=== PATIENT | male | born 2000 | race Two or more races ===

== ENCOUNTER 2019-02-07 08:32 | Emergency (ER) | payer BC ==
[~2019-02-07] VITALS: Ht 175.3 cm; Wt 83.9 kg
--- NOTE | 2019-02-07 08:56 | PHYS DOC ---
Adult General Chief Complaint Chief Complaint: BACK PAIN - NO INJURY HPI HPI Patient is a 18 year old male who presents with low back pain, CVA tenderness and suprapubic pain that has been going on for approximately 2 weeks. The patient states that he was seen at urgent care last week. He was started on an antibiotic for an upper respiratory infection but only took 3 days. He states he stopped the antibiotic because he began feeling better. He denies nausea or vomiting. He denies constipation or diarrhea. He states that he has been running a low-grade fever at home. Review of Systems Review of Systems Constitutional: Denies fever or chills [] Eyes: Denies change in visual acuity, redness, or eye pain [] HENT: Denies nasal congestion or sore throat [] Respiratory: Denies cough or shortness of breath [] Cardiovascular: No additional information not addressed in HPI [] GI: Denies abdominal pain, nausea, vomiting, bloody stools or diarrhea [] : See history of present illness Musculoskeletal: Denies back pain or joint pain [] Integument: Denies rash or skin lesions [] Neurologic: Denies headache, focal weakness or sensory changes [] Endocrine: Denies polyuria or polydipsia [] All other systems were reviewed and found to be within normal limits, except as documented in this note. Current Medications Current Medications Current Medications Medications (Trade) Dose Ordered Sig/George Start Time Stop Time Status Last Admin Dose Admin Azithromycin (Zithromax) 1,000 mg 1X ONCE 02/07/19 10:15 02/07/19 10:16 DC 02/07/19 10:26 1,000 MG Ceftriaxone Sodium (Rocephin Im) 1 gm 1X ONCE 02/07/19 10:15 02/07/19 10:16 DC 02/07/19 10:26 1 GM Ketorolac Tromethamine (Toradol Im) 60 mg 1X ONCE 02/07/19 10:15 02/07/19 10:16 DC 02/07/19 10:27 60 MG Allergies Allergies Allergies Coded Allergies Type Severity Reaction Last Updated Verified No Known Drug Allergies 02/07/19 No Physical Exam Physical Exam Constitutional: Well developed, well nourished, no acute distress, non-toxic appearance. [] HENT: Normocephalic, atraumatic, bilateral tympanic membranes normal, oropharynx moist, no oral exudates, nose normal. [] Eyes: PERRLA, EOMI, conjunctiva normal, no discharge. [] Neck: Normal range of motion, no tenderness, supple, no stridor. [] Cardiovascular:Heart rate regular rhythm, no murmur [] Lungs & Thorax: Bilateral breath sounds clear to auscultation [] Abdomen: Bowel sounds normal, soft, suprapubic tenderness, no masses, no pulsatile masses. [] Skin: Warm, dry, no erythema, no rash. [] Back: generalized lumbar tenderness, CVA tenderness to left. [] Extremities: No tenderness, no cyanosis, no clubbing, ROM intact, no edema. [] Neurologic: Alert and oriented X 3, normal motor function, normal sensory function, no focal deficits noted. [] Psychologic: Affect normal, judgement normal, mood normal. [] Current Patient Data Vital Signs Vital Signs Date Time Temp Pulse Resp B/P (MAP) Pulse Ox O2 Delivery O2 Flow Rate FiO2 02/07/19 10:56 16 16 119/67 (84) 100 Room Air 02/07/19 08:36 97.9 97.9 Lab Values Laboratory Tests Test 02/07/19 08:45 Urine Collection Type Unknown Urine Color Alisha Urine Clarity Clear Urine pH 7.5 Urine Specific [place] 1.025 Urine Protein 30 mg/dL (NEG-TRACE) Urine Glucose (UA) Negative mg/dL (NEG) Urine Ketones (Stick) Trace mg/dL (NEG) Urine Blood Negative (NEG) Urine Nitrite Negative (NEG) Urine Bilirubin Small (NEG) Urine Urobilinogen Dipstick 2.0 mg/dL (0.2 mg/dL) Urine Leukocyte Esterase Negative (NEG) Urine RBC 0 /HPF (0-2) Urine WBC 5-10 /HPF (0-4) Urine Squamous Epithelial Cells Few /LPF Urine Bacteria 0 /HPF (0-FEW) Urine Mucus Marked /LPF EKG EKG [] Radiology/Procedures Radiology/Procedures [] Course & Med Decision Making Course & Med Decision Making Pertinent Labs and Imaging studies reviewed. (See chart for details) []The patient was given Rocephin, Zithromax and Toradol in the emergency department. He understands that we will only call if positive culture results. He is to follow-up with his primary care provider for return to work. He is in agreement with this plan. Renee Disclaimer Dragon Disclaimer This electronic medical record was generated, in whole or in part, using a voice recognition dictation system. Departure Departure Impression: Primary Impression: Dysuria Additional Impression: Low back pain Disposition: 01 HOME, SELF-CARE Condition: STABLE Patient Instructions: Back Pain, Adult, Urinary Tract Infection, [id number] Additional Instructions: Take the antibiotics as directed. Follow up with your PCP in 1 week for a urine recheck. If worsening return to the ED. We will call you if your cultures come back positive. Scripts Ciprofloxacin Hcl (CIPRO) 500 Mg Tablet 1 TAB PO BID for uti, #20 TAB Prov: JENNIFER CAMP APRN 02/07/19 Problem Qualifiers JENNIFER CAMP APRN February 07, 2019 08:56
[2019-02-07 09:27] LABS: BILIRUBIN,URINE SMALL (NEG); CLARITY,URINE CLEAR; COLOR,URINE AMBER; NITRITE,URINE NEGATIVE (NEG); PH,URINE 7.5; PROTEIN,URINE 30 mg/dL (NEG-TRACE)
[2019-02-07 09:45] LABS: BACTERIA,URINE 0 /HPF (0-FEW); RBC,URINE 0 /HPF (0-2); SQUAMOUS EPITHELIAL CELL,UR FEW /LPF
[2019-02-07] MEDS ORDERED: AZITHROMYCIN 250 MG TABLET. PO ONE (10:15)
[2019-02-07] MEDS ORDERED: KETOROLAC 60 MG/2 ML VIAL. IM ONE (10:15)
[2019-02-07] MEDS ORDERED: cefTRIAXone IM 1 GM VIAL IM ONE (10:15)
[2019-02-07] MEDS ORDERED: CIPR500T94 PO (10:44)
[2019-02-07 10:56] VITALS: BP 119/67
[2019-02-24] MEDS ORDERED: OXYC-411 PO (11:54)
== END 2019-02-07 10:56 | disposition home or self-care (01) ==
LOC: ER 08:32
DX: M54.5 Low back pain (principal); R10.30 Lower abdominal pain, unspecified; R30.0 Dysuria; J06.9 Acute upper respiratory infection, unspecified
CPT/HCPCS: 81001; 87086; 87491; 87591; 96372; 99284; J0696; J1885; Q0144

== ENCOUNTER 2019-02-19 07:16 | Emergency (ER) | payer BC ==
[~2019-02-19] VITALS: Ht 177.8 cm; Wt 79.4 kg
[~2019-02-19 07:16] MED LIST: CIPR500T94 PO
[2019-02-19] MEDS ORDERED: HYDROcodone/APAP 5/325MG 1 TAB TABLET PO ONE (07:45)
--- NOTE | 2019-02-19 08:41 | PHYS DOC ---
Past Medical History Past Medical History: No Pertinent History Past Surgical History: No Surgical History Smoking: Cigarettes, Less than 1pk/day Alcohol Use: None Drug Use: Marijuana Adult General Chief Complaint Chief Complaint: LOWER BACK PAIN OR INJURY HPI HPI Patient is a 18 year old male who presents with complaining of low back pain. Patient complaining of left flank and lower back pain for 1.5 month as intermittent sharp pain without radiation that gradually getting worse. Patient states he was seen by his primary care physician in this hospital and treated for UTI and pain medication improvement of his condition but his back pain returned again few days after finishing the medication. Patient denies fever or chills, focal neuro deficit, urine and bowel incontinence, nausea and vomiting, injury. Patient states he forced muscle for the last 6 months and lifting weights. Review of Systems Review of Systems Constitutional: Denies fever or chills [] Eyes: Denies change in visual acuity, redness, or eye pain [] HENT: Denies nasal congestion or sore throat [] Respiratory: Denies cough or shortness of breath [] Cardiovascular: No additional information not addressed in HPI [] GI: Denies abdominal pain, nausea, vomiting, bloody stools or diarrhea [] : Denies dysuria or hematuria [] Musculoskeletal: Reports back pain, denies joint pain [] Integument: Denies rash or skin lesions [] Neurologic: Denies headache, focal weakness or sensory changes [] Endocrine: Denies polyuria or polydipsia [] All other systems were reviewed and found to be within normal limits, except as documented in this note. Current Medications Current Medications Current Medications Medications (Trade) Dose Ordered Sig/[facility] Start Time Stop Time Status Last Admin Dose Admin Acetaminophen/ Hydrocodone Bitart (Lortab 5/325) 1 tab 1X ONCE 02/19/19 07:45 02/19/19 07:49 DC 02/19/19 07:56 1 TAB Allergies Allergies Allergies Coded Allergies Type Severity Reaction Last Updated Verified No Known Drug Allergies 02/07/19 No Physical Exam Physical Exam Constitutional: Well developed, well nourished, mild distress, non-toxic appearance. [] HENT: Normocephalic, atraumatic, oropharynx moist. Eyes: PERRLA, EOMI, conjunctiva normal, no discharge. [] Neck: Normal range of motion, no tenderness, supple, no stridor. [] Cardiovascular:Heart rate regular rhythm, no murmur [] Lungs & Thorax: Bilateral breath sounds clear to auscultation [] Skin: Warm, dry, no erythema, no rash. [] Back: No midline tenderness, left paraspinal muscular spasm with painful range of motion, no CVA tenderness. [] Extremities: No tenderness, no cyanosis, no clubbing, ROM intact, no edema. [] Neurologic: Alert and oriented X 3, normal motor function, normal sensory func tion, no focal deficits noted. [] Psychologic: Affect normal, judgement normal, mood normal. [] Current Patient Data Vital Signs Vital Signs Date Time Temp Pulse Resp B/P (MAP) Pulse Ox O2 Delivery O2 Flow Rate FiO2 02/19/19 10:30 84 16 127/77 (94) 98 02/19/19 07:29 98.2 Room Air 98.2 Lab Values Laboratory Tests Test 02/19/19 07:22 02/19/19 09:25 02/19/19 09:35 Urine Collection Type Unknown Urine Color Yellow Urine Clarity Clear Urine pH 8.0 Urine Specific [place] 1.020 Urine Protein Negative mg/dL (NEG-TRACE) Urine Glucose (UA) Negative mg/dL (NEG) Urine Ketones (Stick) Negative mg/dL (NEG) Urine Blood Negative (NEG) Urine Nitrite Negative (NEG) Urine Bilirubin Negative (NEG) Urine Urobilinogen Dipstick 0.2 mg/dL (0.2 mg/dL) Urine Leukocyte Esterase Negative (NEG) Urine RBC 0 /HPF (0-2) Urine WBC 0 /HPF (0-4) Urine Squamous Epithelial Cells Few /LPF Urine Amorphous Sediment Present /HPF Urine Bacteria 0 /HPF (0-FEW) Urine Mucus Slight /LPF White Blood Count 14.7 x10^3/uL (4.0-11.0) H Red Blood Count 4.65 x10^6/uL (4.30-5.70) Hemoglobin 13.1 g/dL (13.0-17.5) Hematocrit 39.7 % (39.0-53.0) Mean Corpuscular Volume 85 fL (79-100) Mean Corpuscular Hemoglobin 28 pg (25-35) Mean Corpuscular Hemoglobin Concent 33 g/dL (31-37) Red Cell Distribution Width 13.1 % (11.5-14.5) Platelet Count 503 x10^3/uL (140-400) H Neutrophils (%) (Auto) 82 % (31-73) H Lymphocytes (%) (Auto) 10 % (24-48) L Monocytes (%) (Auto) 8 % (0-9) Eosinophils (%) (Auto) 0 % (0-3) Basophils (%) (Auto) 0 % (0-3) Neutrophils # (Auto) 12.0 x10^3uL (1.8-7.7) H Lymphocytes # (Auto) 1.4 x10^3/uL (1.0-4.8) Monocytes # (Auto) 1.2 x10^3/uL (0.0-1.1) H Eosinophils # (Auto) 0.0 x10^3/uL (0.0-0.7) Basophils # (Auto) 0.0 x10^3/uL (0.0-0.2) Sodium Level 135 mmol/L (136-145) L Potassium Level 3.7 mmol/L (3.5-5.1) Chloride Level 98 mmol/L (98-107) Carbon Dioxide Level 27 mmol/L (21-32) Anion Gap 10 (6-14) Blood Urea Nitrogen 7 mg/dL (8-26) L Creatinine 0.8 mg/dL (0.7-1.3) Estimated GFR (Cockcroft-Gault) 124.5 BUN/Creatinine Ratio 9 (6-20) Glucose Level 106 mg/dL (70-99) H Calcium Level 9.5 mg/dL (8.5-10.1) Total Bilirubin 0.4 mg/dL (0.2-1.0) Aspartate Amino Transferase (AST) 29 U/L (15-37) Alanine Aminotransferase (ALT) 39 U/L (16-63) Alkaline Phosphatase 105 U/L (46-116) Total Protein 8.8 g/dL (6.4-8.2) H Albumin 3.0 g/dL (3.4-5.0) L Albumin/Globulin Ratio 0.5 (1.0-1.7) L Lipase 62 U/L (73-393) L Prothrombin Time 14.0 SEC (11.7-14.0) Prothrombin Time INR 1.1 (0.8-1.1) PTT 33 SEC (24-38) Laboratory Tests 02/19/19 09:25 Laboratory Tests 02/19/19 09:25 EKG EKG [] Radiology/Procedures Radiology/Procedures [facility] [address] [place] [address] IMAGING REPORT Signed PATIENT: ELEAZAR GATES ACCOUNT: [id number] : 2000 LOCATION: ER AGE: 18 SEX: M EXAM STATUS: REG ER ORD. PHYSICIAN: RUIZ NEAL MD REASON: flank pain PROCEDURE: CT ABDOMEN PELVIS WO CONTRAST Examination: CT of the abdomen pelvis and CT lumbar spine without contrast HISTORY: History of flank pain COMPARISON: None available TECHNIQUE: Axial CT images of the abdomen pelvis and lumbar spine were performed contrast and coronal sagittal reformats are performed. Exposure: One or more of the following individualized dose reduction techniques were utilized for this examination: 1. Automated exposure control 2. Adjustment of the mA and/or kV according to patient size 3. Use of iterative reconstruction technique FINDINGS: The bibasilar lungs are clear. No evidence of free air identified in the abdomen. The evaluation of the solid organs is limited due to lack of IV contrast. The evaluation of bowel is limited due to lack of oral contrast. The visualized noncontrasted liver, spleen, adrenals grossly appears unremarkable The gallbladder is mildly distended. The stomach is mildly distended. The small bowel is nondilated. Feces and gas noted in the colon. Urinary bladder is mildly distended. No evidence of intrarenal collecting system calculi or hydronephrosis is evident. There are multiple enlarged retrocrural lymph nodes and retroperitoneal lymph nodes with surrounding inflammatory fat stranding noted around the retroperitoneal lymph nodes. The lymph nodes in the retroperitoneal region appear matted with the largest lymph node measuring 3.8 cm. No evidence of lytic bony destructive lesion. The lumbar vertebral body heights are maintained. No evidence of listhesis. IMPRESSION: 1. Multiple enlarged retroperitoneal lymph nodes which appear matted together with surrounding inflammatory fat stranding. Differential includes lymphoma or other lymphoproliferative disorder/lymphadenitis. Few prominent retrocrural lymph nodes identified. Electronically signed by: Michel Falcon MD (02/19/2019 9:04 AM) [facility] DICTATED and SIGNED BY: MICHEL FALCON MD DATE: 02/19/19 0904 Course & Med Decision Making Course & Med Decision Making Pertinent Labs and Imaging studies reviewed. (See chart for details) Evaluation of patient in ER showed 18-year-old male patient with complaining of left flank pain for 1.5 months as a constant pain. Patient had unremarkable physical exam and felt better after treatment with Vicodin and Flexeril. Patient had CT of abdomen and pelvis that showed multiple retroperitoneal lymphadenopathy as large as 3.8 cm concern for possible lymphoma. Dr. Zamora on- call primary care physician called at [phone] for possible hospitalization but he recommended to discharge patient home and follow up with his primary care physician office on Thursday. Patient felt comfortable to go home and follow up with his doctor appointment that was already made in 4 days. Dragon Disclaimer Dragon Disclaimer This electronic medical record was generated, in whole or in part, using a voice recognition dictation system. Departure Departure Impression: Primary Impression: Retroperitoneal lymphadenopathy Additional Impression: Left flank pain Disposition: HOME, SELF-CARE (at 1034) Admitting Physician: Rita Lemus Condition: IMPROVED Referrals: RITA LEMUS MD (PCP) Patient Instructions: Flank Pain Additional Instructions: Drink plenty of liquids Follow-up with your primary care physician in 2-3 days Return to ER if not getting better Scripts Hydrocodone/Apap 5-325 (NORCO 5-325 TABLET) 1 Each Tablet 1 TAB PO PRN Q6HRS PRN for PAIN, #10 TAB 0 Refills Prov: RUIZ NEAL MD 02/19/19 Problem Qualifiers RUIZ NEAL MD February 19, 2019 08:41
[2019-02-19 09:32] LABS: BILIRUBIN,URINE NEGATIVE (NEG); CLARITY,URINE CLEAR; COLOR,URINE YELLOW; NITRITE,URINE NEGATIVE (NEG); PROTEIN,URINE NEGATIVE (NEG-TRACE); UROBILINOGEN,URINE 0.2 mg/dL (0.2 mg/dL)
[2019-02-19 09:38] LABS: BASO % 0 % (0-3); EOS % 0 % (0-3); HEMATOCRIT 39.7 % (39.0-53.0); HEMOGLOBIN 13.1 g/dL (13.0-17.5); LYMPH # 1.4 x10^3/uL (1.0-4.8); LYMPH % 10 % (24-48); MEAN CORPUSCULAR HEMOGLOBIN 28 pg (25-35); MEAN CORPUSCULAR HGB CONC 33 g/dL (31-37); MEAN CORPUSCULAR VOLUME 85 fL (79-100); MONO # 1.2 x10^3/uL (0.0-1.1); MONO % 8 % (0-9); NEUT % 82 % (31-73); PLATELET COUNT 503 x10^3/uL (140-400); RED BLOOD COUNT 4.65 x10^6/uL (4.30-5.70); RED CELL DISTRIBUTION WIDTH 13.1 % (11.5-14.5); WHITE BLOOD COUNT 14.7 x10^3/uL (4.0-11.0)
[2019-02-19 09:43] LABS: AMORPHOUS SEDIMENT,UR PRESENT /HPF; BACTERIA,URINE 0 /HPF (0-FEW); RBC,URINE 0 /HPF (0-2); SQUAMOUS EPITHELIAL CELL,UR FEW /LPF; WBC,URINE 0 /HPF (0-4)
[2019-02-19 09:48] LABS: CALCIUM 9.5 mg/dL (8.5-10.1); CREATININE 0.8 mg/dL (0.7-1.3); GFR 124.5; POTASSIUM 3.7 mmol/L (3.5-5.1)
[2019-02-19 09:58] LABS: ALBUMIN/GLOBULIN RATIO 0.5 (1.0-1.7); TOTAL BILIRUBIN 0.4 mg/dL (0.2-1.0); TOTAL PROTEIN 8.8 g/dL (6.4-8.2)
[2019-02-19 10:30] VITALS: BP 127/77
[2019-02-19] MEDS ORDERED: HYDR-3164 PO (10:36)
--- NOTE | 2019-02-21 14:40 | RAD ---
Examination: CT of the abdomen pelvis and CT lumbar spine without contrast HISTORY: History of flank pain COMPARISON: None available TECHNIQUE: Axial CT images of the abdomen pelvis and lumbar spine were performed contrast and coronal sagittal reformats are performed. Exposure: One or more of the following individualized dose reduction techniques were utilized for this examination: 1. Automated exposure control 2. Adjustment of the mA and/or kV according to patient size 3. Use of iterative reconstruction technique FINDINGS: The bibasilar lungs are clear. No evidence of free air identified in the abdomen. The evaluation of the solid organs is limited due to lack of IV contrast. The evaluation of bowel is limited due to lack of oral contrast. The visualized noncontrasted liver, spleen, adrenals grossly appears unremarkable The gallbladder is mildly distended. The stomach is mildly distended. The small bowel is nondilated. Feces and gas noted in the colon. Urinary bladder is mildly distended. No evidence of intrarenal collecting system calculi or hydronephrosis is evident. There are multiple enlarged retrocrural lymph nodes and retroperitoneal lymph nodes with surrounding inflammatory fat stranding noted around the retroperitoneal lymph nodes. The lymph nodes in the retroperitoneal region appear matted with the largest lymph node measuring 3.8 cm. No evidence of lytic bony destructive lesion. The lumbar vertebral body heights are maintained. No evidence of listhesis. IMPRESSION: 1. Multiple enlarged retroperitoneal lymph nodes which appear matted together with surrounding inflammatory fat stranding. Differential includes lymphoma or other lymphoproliferative disorder/lymphadenitis. Few prominent retrocrural lymph nodes identified. Electronically signed by: Michel Falcon MD (02/19/2019 9:04 AM) [facility]
[2019-02-24] MEDS ORDERED: OXYC-411 PO (11:54)
== END 2019-02-19 10:45 | disposition home or self-care (01) ==
LOC: ER 07:16
DX: M54.5 Low back pain (principal); R59.0 Localized enlarged lymph nodes; R10.9 Unspecified abdominal pain; F17.210 Nicotine dependence, cigarettes, uncomplicated
CPT/HCPCS: 36415; 72131; 74176; 80053; 81001; 83690; 85025; 85610; 85730; 99285-25

== ENCOUNTER → 2019-03-04 | Outpatient (CLI) | payer BC ==
[2019-02-24 15:10] VITALS: BP 158/77
[~2019-03-04] MED LIST changes: +CEPH-264 PO; +HYDR-3164 PO; +OXYC-411 PO
--- NOTE | 2019-03-04 15:15 | RAD ---
Testicular ultrasound HISTORY: Lymphadenopathy. Testicular mass. TECHNIQUE: Grayscale, color Doppler and spectral waveform analysis. FINDINGS: Right testicle measures 3.6 x 2.4 x 1.5 cm. Numerous tiny reflectors are identified compatible with microlithiasis. There is a heterogeneous solid-appearing mass within the right testicle measuring 10 x 7 x 10 mm. There is vascularity around the margins of the lesion. The lesion is heterogeneous but overall hypoechoic to adjacent testicular tissue. There is intact blood supply to the right testicle. Right epididymis appears unremarkable. Left testicle measures 3.7 x 2.5 x 1.7 cm. There are numerous tiny reflectors within the left testicle compatible with microlithiasis. Intact blood supply to the left testicle. Left epididymis appears unremarkable. There is a small varicocele lateral to the left testicle. Small bilateral hydroceles are seen. IMPRESSION: Right testicle mass concerning for malignant etiology. 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 Other neoplastic etiology such as seminoma or nonseminomatous germ cell tumor could also be considered. Electronically signed by: Layo Torres MD (03/04/2019 3:12 PM) [id number]
== END | disposition home or self-care (01) ==
LOC: US 13:59
PROVIDERS: ATTEND Internal Medicine Hematology & Oncology
DX: I86.1 Scrotal varices (principal); N43.3 Hydrocele, unspecified
CPT/HCPCS: 76870

== ENCOUNTER 2019-03-06 03:05 | Emergency (ER) | payer BC ==
[~2019-03-06] VITALS: Ht 177.8 cm; Wt 77.6 kg
[~2019-03-06 03:05] MED LIST changes: -CEPH-264 PO
[2019-03-06] MEDS ORDERED: IV NORMAL SALINE 1000ML BAG 1,000 ML IV ONE (05:00)
[2019-03-06] MEDS ORDERED: fentaNYL PF VIAL 100 MCG/2 ML VIAL IV ONE (05:00)
[2019-03-06] MEDS ORDERED: ONDANSETRON PF 4 MG/2 ML VIAL. IV ONE (05:00)
[2019-03-06] MEDS ORDERED: KETOROLAC 30 MG/ML VIAL. IV ONE (05:00)
[2019-03-06 06:15] LABS: BASO % 0 % (0-3); EOS % 0 % (0-3); HEMATOCRIT 39.8 % (39.0-53.0); HEMOGLOBIN 13.3 g/dL (13.0-17.5); LYMPH % 6 % (24-48); MEAN CORPUSCULAR HEMOGLOBIN 28 pg (25-35); MEAN CORPUSCULAR HGB CONC 33 g/dL (31-37); MEAN CORPUSCULAR VOLUME 83 fL (79-100); MONO # 1.5 x10^3/uL (0.0-1.1); MONO % 9 % (0-9); NEUT # 14.3 x10^3uL (1.8-7.7); NEUT % 85 % (31-73); PLATELET COUNT 451 x10^3/uL (140-400); RED BLOOD COUNT 4.81 x10^6/uL (4.30-5.70); RED CELL DISTRIBUTION WIDTH 14.3 % (11.5-14.5); WHITE BLOOD COUNT 16.9 x10^3/uL (4.0-11.0)
[2019-03-06] MEDS ORDERED: HYDROmorphone 2 MG/ML VIAL IV ONE (06:15)
--- NOTE | 2019-03-06 06:18 | PHYS DOC ---
Past Medical History Past Medical History: Cancer (Testicular) (IQRA QUINTANILLA DO) Past Surgical History: No Surgical History (IQRA QUINTANILLA DO) Additional Information: Nonsmoker Alcohol Use: None Drug Use: Marijuana (IQRA QUINTANILLA DO) Adult General Chief Complaint Chief Complaint: BACK PAIN - NO INJURY HPI HPI 18-year-old male with past medical history of 1.5 month history of back pain who was recently diagnosed with testicular cancer and lymphadenopathy based on CT imaging from 02/19/2019 presents with worsening of active pain. Patient denies recent trauma. Reports has been taking Percocet with some improvement which is fleeting. Patient reports has been feeling unwell and nauseated. Patient also reports has had subjective fever over the last 1-2 days. Denies rash. Denies dysuria or hematuria. (IQRA QUINTANILLA DO) Review of Systems Review of Systems Constitutional: Reports subjective fever or chills and generalized malaise Eyes: Denies redness or eye pain HENT: Denies nasal congestion or sore throat Respiratory: Denies cough or shortness of breath Cardiovascular: Denies chest pain or palpitations GI: Denies abdominal pain; reports nausea : Denies dysuria or hematuria Musculoskeletal: Reports back pain Integument: Denies rash or skin lesions Neurologic: Denies headache, focal weakness or sensory changes Complete systems were reviewed and found to be within normal limits, except as documented in this note. (IQRA QUINTANILLA DO) Current Medications Current Medications Current Medications Medications (Trade) Dose Ordered Sig/George Start Time Stop Time Status Last Admin Dose Admin Ceftriaxone Sodium (Rocephin) 1 gm 1X ONCE 03/06/19 08:00 03/06/19 08:04 DC 03/06/19 08:22 1 GM Fentanyl Citrate (Fentanyl 2ml Vial) 50 mcg 1X ONCE 03/06/19 05:00 03/06/19 05:01 DC 03/06/19 05:54 50 MCG Hydromorphone HCl (Dilaudid) 1 mg 1X ONCE 03/06/19 06:15 03/06/19 06:16 DC 03/06/19 07:12 1 MG Ketorolac Tromethamine (Toradol 30mg Vial) 30 mg 1X ONCE 03/06/19 05:00 03/06/19 05:01 DC 03/06/19 05:52 30 MG Magnesium Oxide (Magnesium Oxide) 400 mg DAILY 03/06/19 08:01 03/06/19 09:00 DC 03/06/19 08:21 400 MG Ondansetron HCl (Zofran) 4 mg 1X ONCE 03/06/19 05:00 03/06/19 05:01 DC 03/06/19 05:49 4 MG Sodium Chloride 1,000 ml @ 1,000 mls/hr 1X ONCE 03/06/19 05:00 03/06/19 05:59 DC 03/06/19 05:00 1,000 MLS/HR (RUIZ NEAL MD) Allergies Allergies Allergies Coded Allergies Type Severity Reaction Last Updated Verified No Known Drug Allergies 02/07/19 No (RUIZ NEAL MD) Physical Exam Physical Exam Constitutional: Well developed, well nourished, no acute distress, appears unwell but nontoxic HENT: Normocephalic, atraumatic, oropharynx moist Eyes: Conjunctiva normal, no discharge Neck: Normal range of motion, no tenderness, supple Cardiovascular: Heart rate normal, regular rhythm Lungs & Thorax: Bilateral breath sounds clear to auscultation, no wheezing Abdomen: Soft, no tenderness Skin: Warm, dry, no erythema, no rash Back: No midline tenderness, no CVA tenderness, mild paraspinal tenderness to lumbar region Extremities: No tenderness, ROM intact, no edema Neurologic: Alert and oriented X 3, normal motor function, normal sensory function, no focal deficits noted Psychologic: Affect flat, judgement normal (QUINTANILLA,IQRA R DO) Current Patient Data Vital Signs Vital Signs Date Time Temp Pulse Resp B/P (MAP) Pulse Ox O2 Delivery O2 Flow Rate FiO2 03/06/19 08:30 116 119/67 (84) 98 Room Air 03/06/19 08:00 14 03/06/19 03:32 99.0 99.0 (RUIZ NEAL MD) Lab Values Laboratory Tests Test 03/06/19 05:40 03/06/19 05:50 White Blood Count 16.9 x10^3/uL (4.0-11.0) H Red Blood Count 4.81 x10^6/uL (4.30-5.70) Hemoglobin 13.3 g/dL (13.0-17.5) Hematocrit 39.8 % (39.0-53.0) Mean Corpuscular Volume 83 fL (79-100) Mean Corpuscular Hemoglobin 28 pg (25-35) Mean Corpuscular Hemoglobin Concent 33 g/dL (31-37) Red Cell Distribution Width 14.3 % (11.5-14.5) Platelet Count 451 x10^3/uL (140-400) H Neutrophils (%) (Auto) 85 % (31-73) H Lymphocytes (%) (Auto) 6 % (24-48) L Monocytes (%) (Auto) 9 % (0-9) Eosinophils (%) (Auto) 0 % (0-3) Basophils (%) (Auto) 0 % (0-3) Neutrophils # (Auto) 14.3 x10^3uL (1.8-7.7) H Lymphocytes # (Auto) 1.0 x10^3/uL (1.0-4.8) Monocytes # (Auto) 1.5 x10^3/uL (0.0-1.1) H Eosinophils # (Auto) 0.0 x10^3/uL (0.0-0.7) Basophils # (Auto) 0.0 x10^3/uL (0.0-0.2) Platelet Estimate Pending Sodium Level 138 mmol/L (136-145) Potassium Level 3.7 mmol/L (3.5-5.1) Chloride Level 101 mmol/L (98-107) Carbon Dioxide Level 24 mmol/L (21-32) Anion Gap 13 (6-14) Blood Urea Nitrogen 7 mg/dL (8-26) L Creatinine 0.7 mg/dL (0.7-1.3) Estimated GFR (Cockcroft-Gault) 145.3 BUN/Creatinine Ratio 10 (6-20) Glucose Level 120 mg/dL (70-99) H Lactic Acid Level 0.9 mmol/L (0.4-2.0) Calcium Level 9.5 mg/dL (8.5-10.1) Magnesium Level 1.6 mg/dL (1.8-2.4) L Total Bilirubin 0.4 mg/dL (0.2-1.0) Aspartate Amino Transferase (AST) 37 U/L (15-37) Alanine Aminotransferase (ALT) 43 U/L (16-63) Alkaline Phosphatase 98 U/L (46-116) Total Protein 8.8 g/dL (6.4-8.2) H Albumin 3.2 g/dL (3.4-5.0) L Albumin/Globulin Ratio 0.6 (1.0-1.7) L Urine Collection Type Unknown Urine Color Yellow Urine Clarity Clear Urine pH 5.5 Urine Specific [place] 1.025 Urine Protein Negative mg/dL (NEG-TRACE) Urine Glucose (UA) Negative mg/dL (NEG) Urine Ketones (Stick) Negative mg/dL (NEG) Urine Blood Negative (NEG) Urine Nitrite Negative (NEG) Urine Bilirubin Negative (NEG) Urine Urobilinogen Dipstick 0.2 mg/dL (0.2 mg/dL) Urine Leukocyte Esterase Negative (NEG) Urine RBC 0 /HPF (0-2) Urine WBC 0 /HPF (0-4) Urine Squamous Epithelial Cells Few /LPF Urine Bacteria 0 /HPF (0-FEW) Urine Mucus Slight /LPF Laboratory Tests 03/06/19 05:40 Laboratory Tests 03/06/19 05:40 (RUIZ NEAL MD) EKG EKG [] (IQRA QUINTANILLA DO) Radiology/Procedures Radiology/Procedures [] (IQRA QUINTANILLA DO) Radiology/Procedures [facility] [address] [place] [address] IMAGING REPORT Signed PATIENT: ELEAZAR GATES ACCOUNT: [id number] : 2000 LOCATION: ER AGE: 18 SEX: M EXAM STATUS: REG ER ORD. PHYSICIAN: RUIZ NEAL MD REASON: fever, testicular cancer PROCEDURE: CHEST PA & LATERAL Examination: CHEST PA LATERAL Technique: PA and lateral views of the chest were obtained. Clinical History: fever, testicular cancer Comparison: None. Findings: The heart and pulmonary vasculature appear within normal limits. The lungs are clear. The pleural margins are clear. Impression: No acute chest process is seen. DICTATED and SIGNED BY: NINA TAY MD DATE: 03/06/19 0751 (RUIZ NEAL MD) Course & Med Decision Making Course & Med Decision Making Patient with diagnosis of testicular cancer with known lymphadenopathy noted on CT abdomen/pelvis presents with worsening back pain which is uncontrolled with his pain medication. Patient also reporting subjective fever/chills, generalized malaise, and nausea. Labs obtained and pending. CT imaging held at this time given recent studies. Symptomatic treatment provided. Sign out given to Dr. Neal for further evaluation and final disposition. Discussed current findings and plan with patient and family, who acknowledge understanding and agreement. (IQRA QUINTANILLA DO) Course & Med Decision Making Evaluation of patient in ER showed 18-year-old male patient with newly diagnosis of testicular cancer without starting chemotherapy or radiation therapy presented to ER with complaining of fever up to 101 and increasing back pain and generalized weakness. Patient had temperature of 98.9 at my evaluation without tachycardia. Labs showing leukocytosis without elevation of lactic acid. Patient's oncologist Dr. Hernandez was consulted at 0 [phone] and he recommended to discharge patient with antibiotic. Patient treated with Rocephin ER and prescription for Keflex was given and was advised to follow-up with Dr. Hernandez tomorrow. Patient had magnesium of 1.6 and treated with oral magnesium. (RUIZ NEAL MD) Dragon Disclaimer Dragon Disclaimer This electronic medical record was generated, in whole or in part, using a voice recognition dictation system. (IQRA QUINTANILLA DO) Departure Departure Impression: Primary Impression: Back pain Additional Impressions: Testicular cancer Fever Hypomagnesemia Disposition: 01 HOME, SELF-CARE (at 0830) Condition: IMPROVED Referrals: CITLALY LEMUS MD (PCP) ELI HERNANDEZ MD Patient Instructions: Fever, Adult, Hypomagnesemia Additional Instructions: Drink plenty of liquids Follow-up with your primary care physician in 3-5 days Return to ER if not getting better Follow-up with your oncologist Dr. Hernandez tomorrow Scripts Cephalexin (KEFLEX) 500 Mg Capsule 2 CAP PO Q12HR, #40 CAP Prov: RUIZ NEAL MD 03/06/19 Problem Qualifiers Primary Impression: Back pain Back pain location: low back pain Chronicity: acute Back pain laterality: bilateral Sciatica presence: without sciatica Qualified Codes: M54.5 - Low back pain Additional Impressions: Testicular cancer Descendance of testis: unspecified Laterality: unspecified laterality Qualified Codes: C62.90 - Malignant neoplasm of unspecified testis, unspecified whether descended or undescended Fever Fever type: unspecified Qualified Codes: R50.9 - Fever, unspecified IQRA QUINTANILLA DO Mar 06, 2019 06:18 RUIZ NEAL MD Mar 06, 2019 08:33
[2019-03-06 06:22] LABS: CALCIUM 9.5 mg/dL (8.5-10.1); CREATININE 0.7 mg/dL (0.7-1.3); GFR 145.3; POTASSIUM 3.7 mmol/L (3.5-5.1)
[2019-03-06 06:28] LABS: ALBUMIN 3.2 g/dL (3.4-5.0); ALBUMIN/GLOBULIN RATIO 0.6 (1.0-1.7); MAGNESIUM 1.6 mg/dL (1.8-2.4); TOTAL BILIRUBIN 0.4 mg/dL (0.2-1.0); TOTAL PROTEIN 8.8 g/dL (6.4-8.2)
[2019-03-06 06:58] LABS: BILIRUBIN,URINE NEGATIVE (NEG); CLARITY,URINE CLEAR; COLOR,URINE YELLOW; NITRITE,URINE NEGATIVE (NEG); PH,URINE 5.5; PROTEIN,URINE NEGATIVE (NEG-TRACE); UROBILINOGEN,URINE 0.2 mg/dL (0.2 mg/dL)
[2019-03-06 07:14] LABS: BACTERIA,URINE 0 /HPF (0-FEW); RBC,URINE 0 /HPF (0-2); SQUAMOUS EPITHELIAL CELL,UR FEW /LPF; WBC,URINE 0 /HPF (0-4)
--- NOTE | 2019-03-06 07:55 | RAD ---
Examination: CHEST PA LATERAL Technique: PA and lateral views of the chest were obtained. Clinical History: fever, testicular cancer Comparison: None. Findings: The heart and pulmonary vasculature appear within normal limits. The lungs are clear. The pleural margins are clear. Impression: No acute chest process is seen.
[2019-03-06] MEDS ORDERED: cefTRIAXone IV Push 1 GM VIAL. IVP ONE (08:00)
[2019-03-06] MEDS ORDERED: MAGNESIUM OXIDE 400 MG TABLET PO SCH (08:01)
[2019-03-06 08:30] VITALS: BP 119/67
[2019-03-06] MEDS ORDERED: CEPH-264 PO (08:32)
[2019-03-06 11:39] LABS: % BANDS 1 % (0-9); % LYMPHS 6 % (24-48); % MONOS 12 % (0-10); % SEGS 81 % (35-66); PLT ESTIMATE INCREASED (ADEQUATE)
== END 2019-03-06 08:47 | disposition home or self-care (01) ==
LOC: ER 03:05
DX: C62.90 Malignant neoplasm of unspecified testis, unspecified whether descended or undescended (principal); M54.5 Low back pain; R50.9 Fever, unspecified; E83.42 Hypomagnesemia; R11.0 Nausea; R53.81 Other malaise
CPT/HCPCS: 36415; 71046; 80053; 81001; 83605; 83735; 85007; 85025; 96374; 96375; 99285; J0696; J1170; J1885; J2405; J3010; J7030

== ENCOUNTER → 2019-03-09 | Outpatient (CLI) | payer BC ==
[2019-03-06 08:30] VITALS: BP 119/67
[~2019-03-09] MED LIST changes: +CEPH-264 PO; +CONTRAST GIVEN. MC PRN; +GADOTERATE 7.5 MMOL/15ML VIAL. IVP ONE; +IOHEXOL 240 MG/ML 50ML VIAL. PO ONE; +IOHEXOL 300 MG/ML 100ML VIAL. IV ONE
--- NOTE | 2019-03-09 12:54 | RAD ---
MRI of the lumbar spine without and with contrast 03/09/2019 CLINICAL HISTORY: Low back pain. History of testicular carcinoma with spread to the retroperitoneal lymph nodes of the abdomen. Low back pain. TECHNIQUE: Unenhanced T1-weighted and T2-weighted sagittal and axial and inversion recovery sagittal images of the lumbar spine were obtained. After the intravenous administration of 15 cc Dotarem, enhanced T1-weighted sagittal and axial images of the lumbar spine were obtained. FINDINGS: Comparison is made to a CT scan of the lumbar spine dated 02/19/2019. Very mild S-shaped curvature of the thoracolumbar spine is seen. Degenerative signal changes are seen involving the L4-5 and L5-S1 discs. The marrow signal of the visualized bony structures is within normal limits. The conus medullaris is normal morphology, position, and signal characteristics. No area of abnormal contrast enhancement is seen. Bulky retroperitoneal lymphadenopathy is seen surrounding the abdominal aorta extending to surround the common iliac arteries/veins, left greater than right. The individual lymph nodes measure 1 cm to 5.6 cm in size. The L1-2, L2-3 and L3-4 disc spaces are within normal limits. At the L4-5 disc space is a mild generalized disc bulge. Degenerative changes are seen involving the facet joints bilaterally. There is mild ligamentum flavum hypertrophy bilaterally. Small facet joint effusions are seen. There is prominence of the posterior epidural fat. These findings when combined result in mild to moderate central spinal canal stenosis. No neural foraminal stenosis is seen. At the L5-S1 disc space there is a mild generalized disc bulge. Superimposed on this disc bulge is a focal central disc protrusion. This measures 3 mm in AP diameter. Degenerative changes are seen involving the facet joints bilaterally. These findings when combined result in mild central spinal canal stenosis. No neural foraminal stenosis is seen. IMPRESSION: 1. There is no MRI evidence of metastatic disease involving the lumbar vertebra. 2. Extensive retroperitoneal lymphadenopathy is again noted. 3. The changes of degenerative disc disease are seen involving the lower lumbar spine. These findings result in mild to moderate central spinal canal stenosis at L4-5 and mild central spinal canal stenosis at L5-S1. No neural foraminal stenosis is seen. Electronically signed by: Darren Calderon MD (03/09/2019 12:52 PM) [facility]
--- NOTE | 2019-03-09 16:16 | RAD ---
CT CHEST ABD PELVIS W/CONTRAST Indication: Lymphadenopathy. Testicular cancer. Exposure: One or more of the following individualized dose reduction techniques were utilized for this examination: 1. Automated exposure control 2. Adjustment of the mA and/or kV according to patient size 3. Use of iterative reconstruction technique. Technique: Intravenous contrast was given. Oral contrast was given. Comparison with abdomen pelvis CT of February 19, 2019. CHEST: Breast density, particularly on the left, compatible with gynecomastia. Thyroid appears unremarkable. No pericardial effusion. No significant lymph node enlargement. No pleural effusion. Tiny nodule in the right middle lobe measures 3 mm, series 2, image 31. Tiny left upper lobe pulmonary nodule at the apex, image 8, measures 4 mm. Trachea and mainstem bronchi are patent. No evidence of consolidating infiltrate. Vertebral body height and alignment are intact. Mild endplate irregularity of the thoracic spine is likely developmental. No evidence of aggressive bone destruction but correlate with nuclear medicine bone scan also to the performed today. Abdomen pelvis: Liver unremarkable. Spleen mildly enlarged, 13 cm. Pancreas appears unremarkable. No evidence of adrenal mass. Kidneys demonstrate symmetric enhancement without focal mass or hydronephrosis. No calcified gallstone. The aorta is patent without aneurysm. Enlarged retrocrural lymph nodes are again seen. Extensive confluent enlarged retroperitoneal lymph nodes are again identified. The overall burden appears similar from prior study although comparison is limited as that was performed without contrast. This tissue surrounds the aorta. The tissue also broadly contacts the posterior inferior vena cava which appears patent. This is greater on the left where it is difficult to distinguish from the left psoas muscle and to lesser extent difficult to distinguish from the right psoas muscle. There is a focal area of central low density within this tissue anterior to the aorta, on series 4 image 31, suggesting a small area of necrosis or cavitation measuring 11 mm diameter. Small mesenteric and right lower quadrant lymph nodes are identified measuring up to 1 cm short axis and appear roughly similar as prior study. No significant small bowel distention. Moderate stool throughout the colon. No evidence of acute colitis. Appendix is difficult to visualize. No evidence of ascites or pneumoperitoneum. Mild stranding is again identified in the fat around the confluence lymph nodes. Urinary bladder grossly unremarkable. No bone destruction, vertebral body height and alignment appear grossly maintained. Correlate with nuclear medicine bone scan also to be performed today. IMPRESSION: 1. Extensive lymph node enlargement in the abdomen, greatest in the retroperitoneum, is again identified and overall similar in bulk as compared with previous study. There may be a small area of necrosis or cavitation within the retroperitoneal mass, better seen on today's contrast study. 2. Mild splenomegaly. 3. Gynecomastia. 4. Tiny pulmonary nodules measuring up to 4 mm. Significance uncertain, but these could be monitored on follow-up CT scan. Electronically signed by: Layo Torres MD (03/09/2019 4:13 PM) [facility]
--- NOTE | 2019-03-09 16:43 | RAD ---
EXAM: Bone scintigraphy. HISTORY: Testicular cancer, low back pain. TECHNIQUE: Following the intravenous injection of 25.1 mCi of Tc-99m labeled methylene diphosphonate (MDP), delayed images of the whole body were performed in anterior and posterior projections. COMPARISON: Today's CT. FINDINGS: There are no foci of intense uptake suggestive of osseous metastatic disease. A small focus of relatively intense uptake along the region of the frontal sinus just to the left of midline may reflect a sinus osteoma, but is nonspecific by this technique. IMPRESSION: 1. No scintigraphic evidence of osseous metastatic disease. 2. 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 CT of the head could exclude other lesions if there is persistent concern. Electronically signed by: Poli Morales MD (03/09/2019 4:40 PM) [facility]
== END | disposition home or self-care (01) ==
LOC: NM 10:20
PROVIDERS: ATTEND Internal Medicine Hematology & Oncology
DX: C62.91 Malignant neoplasm of right testis, unspecified whether descended or undescended (principal); M51.36 Other intervertebral disc degeneration, lumbar region; M48.07 Spinal stenosis, lumbosacral region; M89.38 Hypertrophy of bone, other site; M25.48 Effusion, other site; M51.27 Other intervertebral disc displacement, lumbosacral region; R59.1 Generalized enlarged lymph nodes; R59.0 Localized enlarged lymph nodes; R16.1 Splenomegaly, not elsewhere classified; R91.8 Other nonspecific abnormal finding of lung field
CPT/HCPCS: 71260; 72158; 74177; 78306; A9503; A9575; Q9966; Q9967

== ENCOUNTER 2019-03-12 18:08 | Emergency (ER) | payer BC ==
[~2019-03-12] VITALS: Ht 177.8 cm; Wt 77.6 kg
[~2019-03-12 18:08] MED LIST changes: -CONTRAST GIVEN. MC PRN; -GADOTERATE 7.5 MMOL/15ML VIAL. IVP ONE; -IOHEXOL 240 MG/ML 50ML VIAL. PO ONE; -IOHEXOL 300 MG/ML 100ML VIAL. IV ONE
[2019-03-12] MEDS ORDERED: ONDANSETRON PF 4 MG/2 ML VIAL. IV ONE (18:30)
[2019-03-12] MEDS ORDERED: MORPHINE SULFATE 10 MG/ML VIAL. IV ONE (18:30)
[2019-03-12] MEDS ORDERED: KETOROLAC 30 MG/ML VIAL. IV ONE (18:30)
[2019-03-12] MEDS ORDERED: diazePAM 5 MG TABLET PO ONE (18:30)
[2019-03-12] MEDS ORDERED: HYDROmorphone 2 MG/ML VIAL IV ONE (19:00)
--- NOTE | 2019-03-12 19:17 | PHYS DOC ---
Past Medical History Past Medical History: Cancer Past Surgical History: No Surgical History Alcohol Use: None Drug Use: Marijuana Adult General Chief Complaint Chief Complaint: PAIN CONTROL HPI HPI Patient is a 18 year old female who presents to the ED today complaining of 10 out of 10 low back pain that began almost 2 months ago. Patient was recently diagnosed with testicular cancer last month and he is supposed to start treatment next week including chemotherapy. He states he was put on oxycodone for pain which he is taking. He states today he felt he has increased pain. Denies any fever. Denies any nausea vomiting. Denies any chance he is constipated. He is requesting something for immediate pain relief. Patient denies any injury. Denies any pain radiating to bilateral lower extremities. Denies any loss of bowel bladder function. Review of Systems Review of Systems Constitutional: Denies fever or chills [] GI: Denies abdominal pain, nausea, vomiting, bloody stools or diarrhea [] : Denies dysuria or hematuria [] Musculoskeletal: Reports low back pain Integument: Denies rash or skin lesions [] Neurologic: Denies headache, focal weakness or sensory changes [] All other systems were reviewed and found to be within normal limits, except as documented in this note. Current Medications Current Medications Current Medications Medications (Trade) Dose Ordered Sig/George Start Time Stop Time Status Last Admin Dose Admin Diazepam (Valium) 5 mg 1X ONCE 03/12/19 18:30 03/12/19 18:31 DC 03/12/19 18:35 5 MG Hydromorphone HCl (Dilaudid) 1 mg 1X ONCE 03/12/19 19:00 03/12/19 19:01 DC 03/12/19 19:03 1 MG Ketorolac Tromethamine (Toradol 30mg Vial) 30 mg 1X ONCE 03/12/19 18:30 03/12/19 18:31 DC 03/12/19 18:36 30 MG Morphine Sulfate (Morphine Sulfate) 5 mg 1X ONCE 03/12/19 18:30 03/12/19 18:31 DC 03/12/19 18:37 5 MG Ondansetron HCl (Zofran) 4 mg 1X ONCE 03/12/19 18:30 03/12/19 18:31 DC 03/12/19 18:36 4 MG Allergies Allergies Allergies Coded Allergies Type Severity Reaction Last Updated Verified No Known Drug Allergies 02/07/19 No Physical Exam Physical Exam Constitutional: Well developed, well nourished, no acute distress, non-toxic appearance. [] Abdomen: Bowel sounds normal, soft, no tenderness, no masses, no pulsatile masses. [] Skin: Warm, dry, no erythema, no rash. [] Back: Diffuse paraspinal muscle tenderness to the lumbar spine no midline lumbar spine tenderness, no CVA tenderness. [] Extremities: No tenderness, no cyanosis, no clubbing, ROM intact, no edema. [] Neurologic: Alert and oriented X 3, normal motor function, normal sensory function, no focal deficits noted. [] Psychologic: Affect normal, judgement normal, mood normal. [] EKG EKG [] Radiology/Procedures Radiology/Procedures [] Course & Med Decision Making Course & Med Decision Making Pertinent Labs and Imaging studies reviewed. (See chart for details) This is a 18-year-old male patient presenting to the ED today complaining of low back pain, patient was recently diagnosed with testicular cancer, his currently on oxycodone. Today he felt he has increased pain. Denies any fever nausea vomiting urgency frequency dysuria. Patient was given morphine in the ED with slight relief, was given Dilaudid with much better relief. Was discharged to home. Instructed to continue taking his oxycodone and follow-up with his own doctor next week. Dragon Disclaimer Dragon Disclaimer This electronic medical record was generated, in whole or in part, using a voice recognition dictation system. Departure Departure Impression: Primary Impression: Back pain Disposition: HOME, SELF-CARE Condition: STABLE Referrals: CITLALY LEMUS MD (PCP) Follow-up next week Patient Instructions: Back Pain, Adult Additional Instructions: You were evaluated in the emergency room for back pain. Continue taking your oxycodone as needed for pain. You can also apply ice or heat to your low back. Follow-up with your doctor next week. Come back to the ED at any point symptoms worsen. Problem Qualifiers Primary Impression: Back pain Back pain location: low back pain Chronicity: acute Back pain laterality: bilateral Sciatica presence: without sciatica Qualified Codes: M54.5 - Low back pain JAMESCELSO MESSER [employer] Mar 12, 2019 19:17
[2019-03-12 19:20] VITALS: BP 118/77
== END 2019-03-12 19:34 | disposition home or self-care (01) ==
LOC: ER 18:08
DX: M54.5 Low back pain (principal); Z85.47 Personal history of malignant neoplasm of testis
CPT/HCPCS: 96374; 96375; 99284; J1170; J1885; J2270; J2405

== ENCOUNTER 2019-05-15 20:07 | Emergency (ER) | payer BC ==
[~2019-05-15] VITALS: Ht 177.8 cm; Wt 79.4 kg
[2019-05-15] MEDS ORDERED: IV NORMAL SALINE 1000ML BAG 1,000 ML IV ONE (21:00)
[2019-05-15] MEDS ORDERED: ONDANSETRON PF 4 MG/2 ML VIAL. IV ONE (21:15)
[2019-05-15 21:45] LABS: BASO % 0 % (0-3); EOS % 1 % (0-3); HEMATOCRIT 41.7 % (39.0-53.0); HEMOGLOBIN 14.5 g/dL (13.0-17.5); LYMPH # 1.4 x10^3/uL (1.0-4.8); LYMPH % 21 % (24-48); MEAN CORPUSCULAR HEMOGLOBIN 29 pg (25-35); MEAN CORPUSCULAR HGB CONC 35 g/dL (31-37); MEAN CORPUSCULAR VOLUME 84 fL (79-100); MONO # 0.1 x10^3/uL (0.0-1.1); MONO % 1 % (0-9); NEUT # 4.9 x10^3/uL (1.8-7.7); NEUT % 77 % (31-73); PLATELET COUNT 176 x10^3/uL (140-400); RED BLOOD COUNT 4.95 x10^6/uL (4.30-5.70); RED CELL DISTRIBUTION WIDTH 21.9 % (11.5-14.5); WHITE BLOOD COUNT 6.4 x10^3/uL (4.0-11.0)
[2019-05-15 21:51] LABS: CALCIUM 9.5 mg/dL (8.5-10.1); CREATININE 0.7 mg/dL (0.7-1.3); GFR 143.8; POTASSIUM 4.2 mmol/L (3.5-5.1)
[2019-05-15 21:57] LABS: ALBUMIN/GLOBULIN RATIO 1.1 (1.0-1.7); TOTAL BILIRUBIN 0.9 mg/dL (0.2-1.0); TOTAL PROTEIN 7.8 g/dL (6.4-8.2)
[2019-05-15 22:07] LABS: ANISOCYTOSIS MOD; PLT ESTIMATE ADEQUATE (ADEQUATE); TOXIC GRANULATION SLIGHT
--- NOTE | 2019-05-15 22:22 | PHYS DOC ---
Past Medical History Past Medical History: Cancer Additional Past Medical Histor: TESTICULAR CA Past Surgical History: No Surgical History Alcohol Use: None Drug Use: None, Marijuana Adult General Chief Complaint Chief Complaint: NAUSEA/VOMITING/DIARRHA HPI HPI Patient is a 19 year old L, accompanied by his significant other, who presents to the emergency room with complaints of nausea, vomiting, and diarrhea for the last 2 days. Patient states that he is currently receiving chemotherapy for testicular cancer. His last chemotherapy treatment was on May 13, 2019. In addition patient complains of a recent dry cough, scratchy throat, runny nose, and body aches. Patient states he has been unable to keep food or water down for the last 2 days, he called his oncologist and the on-call doctor told him to go to the ER for evaluation. He denies any pain at this time. ROS Patient denies any fever, bloody stools, or bloody emesis. He denies any rash, ear pain, or extremity swelling. He denies any dysuria, or hematuria. All other ROS is neg unless otherwise noted in HPI. Review of Systems Review of Systems See Above Current Medications Current Medications Current Medications Medications (Trade) Dose Ordered Sig/George Start Time Stop Time Status Last Admin Dose Admin Lorazepam (Ativan Inj) 1 mg 1X ONCE 05/15/19 23:00 05/15/19 23:01 DC 05/15/19 22:59 1 MG Metoclopramide HCl (Reglan Vial) 10 mg 1X ONCE 05/15/19 23:00 05/15/19 23:01 DC 05/15/19 22:59 10 MG Ondansetron HCl (Zofran) 4 mg 1X ONCE 05/15/19 21:15 05/15/19 21:16 DC 05/15/19 21:41 4 MG Sodium Chloride 1,000 ml @ 1,000 mls/hr 1X ONCE 05/15/19 21:00 05/15/19 21:59 DC 05/15/19 21:41 1,000 MLS/HR Allergies Allergies Allergies Coded Allergies Type Severity Reaction Last Updated Verified No Known Drug Allergies 02/07/19 No Physical Exam Physical Exam See Above Constitutional: Well developed, well nourished, no acute distress, non-toxic appearance. [] HENT: Normocephalic, atraumatic, bilateral external ears normal, bilateral TMs are normal, oropharynx dry, no oral exudates, nose normal. [] Eyes: conjunctiva normal, no discharge. [] Neck: Normal range of motion, no tenderness, supple, no stridor. [] Cardiovascular:Heart rate regular rhythm, no murmur [] Lungs & Thorax: Bilateral breath sounds clear to auscultation [] Abdomen: Bowel sounds normal, soft, no tenderness, no masses, no pulsatile masses. [] Skin: Warm, dry, no erythema, no rash. [] Back: No CVA tenderness. [] Extremities: No cyanosis, ROM intact, no edema. [] Neurologic: Alert and oriented X 3, no focal deficits noted. [] Psychologic: Affect normal, judgement normal, mood normal. [] Current Patient Data Vital Signs Vital Signs Date Time Temp Pulse Resp B/P (MAP) Pulse Ox O2 Delivery O2 Flow Rate FiO2 05/15/19 23:12 60 18 106/60 (75) Room Air 05/15/19 20:31 97.9 98 97.9 Lab Values Laboratory Tests Test 05/15/19 21:37 White Blood Count 6.4 x10^3/uL (4.0-11.0) Red Blood Count 4.95 x10^6/uL (4.30-5.70) Hemoglobin 14.5 g/dL (13.0-17.5) Hematocrit 41.7 % (39.0-53.0) Mean Corpuscular Volume 84 fL (79-100) Mean Corpuscular Hemoglobin 29 pg (25-35) Mean Corpuscular Hemoglobin Concent 35 g/dL (31-37) Red Cell Distribution Width 21.9 % (11.5-14.5) H Platelet Count 176 x10^3/uL (140-400) Neutrophils (%) (Auto) 77 % (31-73) H Lymphocytes (%) (Auto) 21 % (24-48) L Monocytes (%) (Auto) 1 % (0-9) Eosinophils (%) (Auto) 1 % (0-3) Basophils (%) (Auto) 0 % (0-3) Neutrophils # (Auto) 4.9 x10^3/uL (1.8-7.7) Lymphocytes # (Auto) 1.4 x10^3/uL (1.0-4.8) Monocytes # (Auto) 0.1 x10^3/uL (0.0-1.1) Eosinophils # (Auto) 0.0 x10^3/uL (0.0-0.7) Basophils # (Auto) 0.0 x10^3/uL (0.0-0.2) Toxic Granulation Slight Platelet Estimate Adequate (ADEQUATE) Anisocytosis Mod Sodium Level 137 mmol/L (136-145) Potassium Level 4.2 mmol/L (3.5-5.1) Chloride Level 99 mmol/L (98-107) Carbon Dioxide Level 30 mmol/L (21-32) Anion Gap 8 (6-14) Blood Urea Nitrogen 15 mg/dL (8-26) Creatinine 0.7 mg/dL (0.7-1.3) Estimated GFR (Cockcroft-Gault) 143.8 BUN/Creatinine Ratio 21 (6-20) H Glucose Level 98 mg/dL (70-99) Calcium Level 9.5 mg/dL (8.5-10.1) Total Bilirubin 0.9 mg/dL (0.2-1.0) Aspartate Amino Transferase (AST) 17 U/L (15-37) Alanine Aminotransferase (ALT) 20 U/L (16-63) Alkaline Phosphatase 57 U/L (46-116) Total Protein 7.8 g/dL (6.4-8.2) Albumin 4.0 g/dL (3.4-5.0) Albumin/Globulin Ratio 1.1 (1.0-1.7) Laboratory Tests 05/15/19 21:37 Laboratory Tests 05/15/19 21:37 EKG EKG [] Radiology/Procedures Radiology/Procedures [] Course & Med Decision Making Course & Med Decision Making Pertinent Labs and Imaging studies reviewed. (See chart for details) dx: Nausea, vomiting, diarrhea Patient was given 1 L of normal saline and 4 mg of Zofran. By mouth challenge was attempted with apple juice, patient was feeling better and wanted to go home 2218- Spoke with Dr. Gilliam who states pt is ok to be d/c to home as long as he can keep some fluids down prior to d/c. Continue taking zofran and compazine as needed for nausea. Upon discharge patient vomited. A dose of 10 mg of Reglan and 1 mg of Ativan was given to the patient. He reported feeling better after these medications and stated he would like to go home, will follow up with his oncologist tomorrow in the morning as planned. Patient verbalized an understanding of home care, medications, follow-up, and return to ED instructions and was in agreement with the plan of care. [] Dragon Disclaimer Dragon Disclaimer This electronic medical record was generated, in whole or in part, using a voice recognition dictation system. Departure Departure Impression: Primary Impression: Nausea & vomiting Additional Impression: Acute diarrhea Disposition: HOME, SELF-CARE Condition: STABLE Referrals: CITLALY LEMUS MD (PCP) Patient Instructions: Diet for Diarrhea, Adult, Nausea and Vomiting, [id number] Additional Instructions: Continue taking your nausea medications as prescribed. Clear fluids for 24 hours then advance diet as tolerated starting with bland foods such as: bananas, rice, applesauce, and toast. Follow up with your oncologist tomorrow as planned, return to the ER if symptoms worsen. Problem Qualifiers Primary Impression: Nausea & vomiting Vomiting type: unspecified Vomiting Intractability: non-intractable Qualified Codes: R11.2 - Nausea with vomiting, unspecified [employer] May 15, 2019 22:22
[2019-05-15] MEDS ORDERED: METOCLOPRAMIDE HCL 10 MG/2 ML VIAL. IV ONE (23:00)
[2019-05-15 23:12] VITALS: BP 106/60
== END 2019-05-15 23:36 | disposition home or self-care (01) ==
LOC: ER 20:07
DX: R11.2 Nausea with vomiting, unspecified (principal); R19.7 Diarrhea, unspecified; R05 Cough
CPT/HCPCS: 36415; 80053; 85025; 96361; 96374; 96375; 99284; J2060; J2405; J2765; J7030

== ENCOUNTER 2019-06-06 09:57 | Emergency (ER) | payer BC ==
[~2019-06-06] VITALS: Ht 177.8 cm; Wt 74.8 kg
[2019-06-06] MEDS ORDERED: IV NORMAL SALINE 1000ML BAG 1,000 ML IV ONE (11:45)
[2019-06-06] MEDS ORDERED: diphenhydrAMINE 50 MG/ML VIAL IVP ONE (11:45)
[2019-06-06] MEDS ORDERED: IV NORMAL SALINE 500ML BAG 500 ML IV ONE (11:45)
[2019-06-06] MEDS ORDERED: ONDANSETRON PF 4 MG/2 ML VIAL. IV ONE (11:45)
[2019-06-06] MEDS ORDERED: PROCHLORPERAZINE 10 MG/2 ML VIAL. IV ONE (11:45)
[2019-06-06 11:48] LABS: BASO % 0 % (0-3); EOS % 0 % (0-3); HEMATOCRIT 39.7 % (39.0-53.0); LYMPH # 1.2 x10^3/uL (1.0-4.8); LYMPH % 22 % (24-48); MEAN CORPUSCULAR HEMOGLOBIN 31 pg (25-35); MEAN CORPUSCULAR HGB CONC 35 g/dL (31-37); MEAN CORPUSCULAR VOLUME 87 fL (79-100); MONO % 1 % (0-9); NEUT # 4.3 x10^3/uL (1.8-7.7); NEUT % 77 % (31-73); PLATELET COUNT 235 x10^3/uL (140-400); RED BLOOD COUNT 4.58 x10^6/uL (4.30-5.70); WHITE BLOOD COUNT 5.5 x10^3/uL (4.0-11.0)
[2019-06-06 13:16] LABS: PLT ESTIMATE ADEQUATE (ADEQUATE)
[2019-06-06 13:18] LABS: ANISOCYTOSIS MOD
[2019-06-06 13:36] LABS: CALCIUM 9.3 mg/dL (8.5-10.1); CREATININE 0.8 mg/dL (0.7-1.3); GFR 123.2; POTASSIUM 3.9 mmol/L (3.5-5.1)
[2019-06-06 13:40] LABS: BILIRUBIN,URINE NEGATIVE (NEG); CLARITY,URINE CLOUDY; COLOR,URINE YELLOW; NITRITE,URINE NEGATIVE (NEG); PROTEIN,URINE NEGATIVE (NEG-TRACE); UROBILINOGEN,URINE 0.2 mg/dL (0.2 mg/dL)
[2019-06-06 13:40] LABS: TOTAL BILIRUBIN 0.9 mg/dL (0.2-1.0); TOTAL PROTEIN 7.9 g/dL (6.4-8.2)
[2019-06-06 13:51] LABS: BACTERIA,URINE 0 /HPF (0-FEW); RBC,URINE 0 /HPF (0-2); WBC,URINE OCC /HPF (0-4)
--- NOTE | 2019-06-06 14:09 | RAD ---
AP view of the chest. Comparison: Chest radiograph dated 03/06/2019. Indication: Fever, history of testicular cancer Findings: Normal lung volume. No focal airspace disease. Normal pulmonary vasculature. No pleural effusion. No pneumothorax. The cardiomediastinal silhouette is normal in appearance. The great vessels are normal. No acute osseous abnormality. Impression: No acute cardiopulmonary process. Electronically signed by: Joe Anderson MD (06/06/2019 2:06 PM) [facility]
[2019-06-06 14:27] VITALS: BP 100/56
--- NOTE | 2019-06-06 16:29 | PHYS DOC ---
Past Medical History Past Medical History: Cancer Additional Past Medical Histor: TESTICULAR CA Past Surgical History: No Surgical History Alcohol Use: None Drug Use: None, Marijuana Social History Narrative: pt denies 06/06/19 Adult General Chief Complaint Chief Complaint: NAUSEA/VOMITING/DIARRHA HPI HPI Patient is a 19 year old m p/w nausea and vomiting. patient states chemo last dose on thursday got steroids with the chemo this time and was asked not to take the zofran and compazine over the weekend has been vomiting alot no fever no pain really no abdo pain, just throat is sore from vomiting no dysuria no headache no chest pain or sob. hx of testicular cancer Review of Systems Review of Systems Constitutional: Denies fever or chills [] Eyes: Denies change in visual acuity, redness, or eye pain [] HENT: Denies nasal congestion or sore throat [] Respiratory: Denies cough or shortness of breath [] Cardiovascular: No additional information not addressed in HPI [] GI: Integument: Denies rash or skin lesions [] Neurologic: Denies headache, focal weakness or sensory changes [] All other systems were reviewed and found to be within normal limits, except as documented in this note. Current Medications Current Medications Current Medications Medications (Trade) Dose Ordered Sig/George Start Time Stop Time Status Last Admin Dose Admin Diphenhydramine HCl (Benadryl) 25 mg 1X ONCE 06/06/19 11:45 06/06/19 11:46 DC 06/06/19 11:49 25 MG Ondansetron HCl (Zofran) 4 mg 1X ONCE 06/06/19 11:45 06/06/19 11:46 DC 06/06/19 11:49 4 MG Prochlorperazine Edisylate (Compazine) 10 mg 1X ONCE 06/06/19 11:45 06/06/19 11:46 DC 06/06/19 11:49 10 MG Sodium Chloride 1,000 ml @ 1,000 mls/hr 1X ONCE 06/06/19 11:45 06/06/19 12:44 DC 06/06/19 11:49 1,000 MLS/HR Allergies Allergies Allergies Coded Allergies Type Severity Reaction Last Updated Verified No Known Drug Allergies 02/07/19 No Physical Exam Physical Exam Constitutional: Well developed, chronically ill apperaing but otherwise nad noted. HENT: Normocephalic, atraumatic, bilateral external ears normal, oropharynx dry, no oral exudates, nose normal. [] Eyes: PERRLA, EOMI, conjunctiva normal, no discharge. [] Neck: Normal range of motion, no tenderness, supple, no stridor. [] Cardiovascular:Heart rate regular rhythm, no murmur [] Lungs & Thorax: Bilateral breath sounds clear to auscultation [] Abdomen: Bowel sounds normal, soft, no tenderness, no masses, no pulsatile masses. [] Skin: Warm, dry, no erythema, no rash. [] Back: No tenderness, no CVA tenderness. [] Extremities: No tenderness, no cyanosis, no clubbing, ROM intact, no edema. [] Neurologic: Alert and oriented X 3, normal motor function, normal sensory function, no focal deficits noted. [] Psychologic: Affect normal, judgement normal, mood normal. [] Current Patient Data Vital Signs Vital Signs Date Time Temp Pulse Resp B/P (MAP) Pulse Ox O2 Delivery O2 Flow Rate FiO2 06/06/19 14:27 70 16 100/56 (71) 99 Room Air 06/06/19 11:00 97.9 97.9 Lab Values Laboratory Tests Test 06/06/19 11:40 06/06/19 13:30 White Blood Count 5.5 x10^3/uL (4.0-11.0) Red Blood Count 4.58 x10^6/uL (4.30-5.70) Hemoglobin 14.0 g/dL (13.0-17.5) Hematocrit 39.7 % (39.0-53.0) Mean Corpuscular Volume 87 fL (79-100) Mean Corpuscular Hemoglobin 31 pg (25-35) Mean Corpuscular Hemoglobin Concent 35 g/dL (31-37) Red Cell Distribution Width 22.0 % (11.5-14.5) H Platelet Count 235 x10^3/uL (140-400) Neutrophils (%) (Auto) 77 % (31-73) H Lymphocytes (%) (Auto) 22 % (24-48) L Monocytes (%) (Auto) 1 % (0-9) Eosinophils (%) (Auto) 0 % (0-3) Basophils (%) (Auto) 0 % (0-3) Neutrophils # (Auto) 4.3 x10^3/uL (1.8-7.7) Lymphocytes # (Auto) 1.2 x10^3/uL (1.0-4.8) Monocytes # (Auto) 0.0 x10^3/uL (0.0-1.1) Eosinophils # (Auto) 0.0 x10^3/uL (0.0-0.7) Basophils # (Auto) 0.0 x10^3/uL (0.0-0.2) Platelet Estimate Adequate (ADEQUATE) Anisocytosis Mod Sodium Level 139 mmol/L (136-145) Potassium Level 3.9 mmol/L (3.5-5.1) Chloride Level 100 mmol/L (98-107) Carbon Dioxide Level 27 mmol/L (21-32) Anion Gap 12 (6-14) Blood Urea Nitrogen 15 mg/dL (8-26) Creatinine 0.8 mg/dL (0.7-1.3) Estimated GFR (Cockcroft-Gault) 123.2 BUN/Creatinine Ratio 19 (6-20) Glucose Level 95 mg/dL (70-99) Calcium Level 9.3 mg/dL (8.5-10.1) Total Bilirubin 0.9 mg/dL (0.2-1.0) Aspartate Amino Transferase (AST) 19 U/L (15-37) Alanine Aminotransferase (ALT) 25 U/L (16-63) Alkaline Phosphatase 65 U/L (46-116) Total Protein 7.9 g/dL (6.4-8.2) Albumin 4.0 g/dL (3.4-5.0) Albumin/Globulin Ratio 1.0 (1.0-1.7) Lipase 75 U/L (73-393) Urine Collection Type Unknown Urine Color Yellow Urine Clarity Cloudy Urine pH 6.0 Urine Specific [place] 1.025 Urine Protein Negative mg/dL (NEG-TRACE) Urine Glucose (UA) Negative mg/dL (NEG) Urine Ketones (Stick) Trace mg/dL (NEG) Urine Blood Negative (NEG) Urine Nitrite Negative (NEG) Urine Bilirubin Negative (NEG) Urine Urobilinogen Dipstick 0.2 mg/dL (0.2 mg/dL) Urine Leukocyte Esterase Negative (NEG) Urine RBC 0 /HPF (0-2) Urine WBC Occ /HPF (0-4) Urine Bacteria 0 /HPF (0-FEW) Urine Mucus Mod /LPF Laboratory Tests 06/06/19 11:40 Laboratory Tests 06/06/19 11:40 EKG EKG [] Radiology/Procedures Radiology/Procedures [] Course & Med Decision Making Course & Med Decision Making Pertinent Labs and Imaging studies reviewed. (See chart for details) []Labs are looking good vital signs are looking good in summary this is a 19-year-old male presenting with significant nausea and vomiting we have treated him aggressively in the emergency room with the above treatment and he actually got a lot better. He was feeling much better on reevaluation somewhat of a delay in the ER course due to delayed chemistry panel however ultimately it came back and that he was resting comfortably and he was eager to be discharged home return precautions discussed abdomen was nontender. Dragon Disclaimer Dragon Disclaimer This electronic medical record was generated, in whole or in part, using a voice recognition dictation system. Departure Departure Impression: Primary Impression: Nausea & vomiting Disposition: 01 HOME, SELF-CARE Condition: STABLE Referrals: CITLALY LEMUS MD (PCP) Patient Instructions: Nausea and Vomiting, [id number] TEODORO PATHAK MD Jun 06, 2019 16:29
== END 2019-06-06 14:58 | disposition home or self-care (01) ==
LOC: ER 09:57
DX: R11.2 Nausea with vomiting, unspecified (principal)
CPT/HCPCS: 36415; 71045; 80053; 81001; 83690; 85025; 96361; 96374; 96375; 99285; J0780; J1200; J2405; J7030; J7040